=== PATIENT | female | born 1965 | race Caucasian/White ===

== ENCOUNTER 2022-06-04 16:29 | Emergency (ER) | payer MEDICARE, MEDICAID ==
[~2022-06-04] VITALS: Wt 72.6 kg
[2022-06-04 16:40] VITALS: BP 100/75
[2022-06-04 17:33] LABS: BASO # 0.1 10*3/uL (0.0-0.1); BASO % 0.7 % (0.0-1.0); EOS # 0.3 10*3/uL (0.0-0.4); EOS % 2.9 % (1.0-4.0); LYMPH # 3.6 10*3/uL (1.3-4.4); LYMPH % 34.4 % (27.0-41.0); MEAN CELL VOLUME 97.3 fl (81.0-99.0); MEAN CORPUSCULAR HGB 30.1 pg (27.0-31.0); MEAN CORPUSCULAR HGB CONC 30.9 g/dl (33.0-37.0); MEAN PLATELET VOLUME 9.2 fl (9.6-12.3); MONO # 0.7 10*3/uL (0.1-1.0); MONO % 6.6 % (3.0-9.0); NEUT # 5.7 10*3/uL (2.3-7.9); NEUT % 54.5 % (47.0-73.0); PLATELET COUNT AUTOMATED 253 10*3/uL (130-400); RED BLOOD COUNT 3.39 10*6/uL (4.10-5.10); RED CELL DISTRI WIDTH 15.8 % (0-14.5); WHITE BLOOD COUNT 10.5 10*3/uL (4.8-10.8)
[2022-06-04 17:59] LABS: CREATININE 1.19 mg/dL (0.55-1.02)
[2022-06-04] MEDS ORDERED: APAP325 MG PO (22:31)
[2022-06-04] MEDS ORDERED: APAP500 MG PO (22:32)
[2022-06-04] MEDS ORDERED: VENTOLIN 02.5 MG/3 M INH (22:34)
[2022-06-04] MEDS ORDERED: MYLANTA MAXIMU355 M1 PO (22:35)
[2022-06-04] MEDS ORDERED: DULCOLAX10 M1 R (22:36)
[2022-06-04] MEDS ORDERED: MILK OF MA400 MG/51 PO (22:37)
[2022-06-04] MEDS ORDERED: MIRALAX17 GM PO (22:37)
[2022-06-04] MEDS ORDERED: TRAMADOL HCL50 MG PO (22:38)
[2022-06-04] MEDS ORDERED: VISTARIL50 MG PO (22:40)
[2022-06-04] MEDS ORDERED: LEVOTHYROXINE75 MCG PO (22:41)
[2022-06-04] MEDS ORDERED: LIDOCAINE PAIN1 EACH T (22:42)
[2022-06-04] MEDS ORDERED: LOSARTAN POTASS50 M1 PO (22:47)
[2022-06-04] MEDS ORDERED: MIRTAZAPINE15 M2 PO (22:48)
[2022-06-04] MEDS ORDERED: MULTI-VITAMIN1 EACH PO (22:49)
[2022-06-04] MEDS ORDERED: NAMENDA-5 PO (23:09)
[2022-06-04] MEDS ORDERED: NUED1CAP PO (23:10)
[2022-06-04] MEDS ORDERED: NAPROXEN500 MG PO (23:10)
[2022-06-04] MEDS ORDERED: PROTONIX40 MG PO (23:11)
[2022-06-04] MEDS ORDERED: GAVISCON LIQUI355 ML PO (23:13)
[2022-06-04] MEDS ORDERED: DEPAKOTE SPRIN125 MG PO (23:15)
[2022-06-04] MEDS ORDERED: KLONOPIN0.5 MG PO (23:15)
[2022-06-04] MEDS ORDERED: Ondansetron4 MG PO (23:17)
[2022-06-04] MEDS ORDERED: Mysoline50 MG PO (23:17)
[2022-06-04] MEDS ORDERED: EXELON1 EAC1 TD (23:18)
[2022-06-04] MEDS ORDERED: VITAMIN D350 MC2 PO (23:20)
[2022-06-04] MEDS ORDERED: MAGNESIUM400 M1 PO (23:20)
[2022-06-04] MEDS ORDERED: RISPERIDONE0.5 MG PO (23:21)
== END 2022-06-04 21:59 | disposition admitted as inpatient to this hospital (09) ==
LOC: ED → EDBD 17:15 → ED 17:15 → 3N 21:50
PROVIDERS: Internal Medicine
DX: F03.90 Unspecified dementia, unspecified severity, without behavioral disturbance, psychotic disturbance, mood disturbance, and anxiety (principal); Z20.822 Contact with and (suspected) exposure to COVID-19; F39 Unspecified mood [affective] disorder; R45.1 Restlessness and agitation; Z79.899 Other long term (current) drug therapy

== ENCOUNTER 2022-06-04 21:49 | Inpatient (IN) | payer MEDICARE, MEDICAID ==
[~2022-06-04] VITALS: Ht 180.3 cm; Wt 57.2 kg
[2022-06-04 22:01] VITALS: BP 108/67
[2022-06-04] MEDS ORDERED: APAP325 MG PO (22:31)
[2022-06-04] MEDS ORDERED: APAP500 MG PO (22:32)
[2022-06-04] MEDS ORDERED: VENTOLIN 02.5 MG/3 M INH (22:34)
[2022-06-04] MEDS ORDERED: MYLANTA MAXIMU355 M1 PO (22:35)
[2022-06-04] MEDS ORDERED: DULCOLAX10 M1 R (22:36)
[2022-06-04] MEDS ORDERED: MIRALAX17 GM PO (22:37)
[2022-06-04] MEDS ORDERED: MILK OF MA400 MG/51 PO (22:37)
[2022-06-04] MEDS ORDERED: TRAMADOL HCL50 MG PO (22:38)
[2022-06-04] MEDS ORDERED: VISTARIL50 MG PO (22:40)
[2022-06-04] MEDS ORDERED: LEVOTHYROXINE75 MCG PO (22:41)
[2022-06-04] MEDS ORDERED: LIDOCAINE PAIN1 EACH T (22:42)
[2022-06-04] MEDS ORDERED: LOSARTAN POTASS50 M1 PO (22:47)
[2022-06-04] MEDS ORDERED: MIRTAZAPINE15 M2 PO (22:48)
[2022-06-04] MEDS ORDERED: MULTI-VITAMIN1 EACH PO (22:49)
[2022-06-04] MEDS ORDERED: NAMENDA-5 PO (23:09)
[2022-06-04] MEDS ORDERED: NUED1CAP PO (23:10)
[2022-06-04] MEDS ORDERED: NAPROXEN500 MG PO (23:10)
[2022-06-04] MEDS ORDERED: PROTONIX40 MG PO (23:11)
[2022-06-04] MEDS ORDERED: GAVISCON LIQUI355 ML PO (23:13)
[2022-06-04] MEDS ORDERED: KLONOPIN0.5 MG PO (23:15)
[2022-06-04] MEDS ORDERED: DEPAKOTE SPRIN125 MG PO (23:15)
[2022-06-04] MEDS ORDERED: Mysoline50 MG PO (23:17)
[2022-06-04] MEDS ORDERED: Ondansetron4 MG PO (23:17)
[2022-06-04] MEDS ORDERED: EXELON1 EAC1 TD (23:18)
[2022-06-04] MEDS ORDERED: VITAMIN D350 MC2 PO (23:20)
[2022-06-04] MEDS ORDERED: MAGNESIUM400 M1 PO (23:20)
[2022-06-04] MEDS ORDERED: RISPERIDONE0.5 MG PO (23:21)
[2022-06-05 06:39] LABS: CHLORIDE 106 mmol/L (98-107); POTASSIUM 3.8 mmol/L (3.5-5.1); SODIUM 141 mmol/L (136-145)
[2022-06-05 06:53] LABS: ALKALINE PHOSPHATASE 80 U/L (45-117); BUN 18 mg/dl (7-24); CHOLESTEROL 214 mg/dL (<200); CREATININE 0.96 mg/dL (0.55-1.02); LDL CHOLESTEROL 98 mg/dL (9-159); SGOT/AST 20 IU/L (3-35); SGPT/ALT 14 U/L (12-78); THYROID STIM HORMONE (HS) 0.529 uIU/ml (0.358-4.75); TOTAL PROTEIN 7.1 gm/dL (6.4-8.2); TRIGLYCERIDES 374 mg/dl (<150); VALPROIC ACID (DEPAKENE) 31.4 ug/ml (50-100)
[2022-06-05 07:18] LABS: VITAMIN D, 25-HYDROXY 72.7 ng/mL (30-100)
[2022-06-05 08:00] VITALS: BP 104/63
[2022-06-05 20:00] VITALS: BP 102/60
[2022-06-06 07:00] VITALS: BP 106/61
[2022-06-06 20:00] VITALS: BP 130/94
[2022-06-06 21:00] VITALS: BP 138/88
[2022-06-07 07:02] VITALS: BP 116/78
[2022-06-07 18:31] VITALS: BP 104/71
[2022-06-08 07:59] VITALS: BP 114/76
[2022-06-08 20:00] VITALS: BP 104/60
[2022-06-09 06:59] VITALS: BP 102/65
[2022-06-09 20:00] VITALS: BP 92/63
[2022-06-10 12:12] LABS: BILIRUBIN Negative (Negative); BLOOD Trace-Intact (Negative); CLARITY Cloudy (Clear); COLOR Yellow (Yellow); GLUCOSE Negative (Negative); KETONE Trace (Negative); LEUKO ESTERASE 1+ (Negative); NITRITE Negative (Negative); PH 5.5 (4.5-8.0); SPECIFIC GRAVITY >= 1.030 (1.001-1.030)
[2022-06-10 12:35] LABS: BACTERIA 1+; EPITHELIAL CELLS 31-40; MUCOUS 1+
[2022-06-10 15:45] VITALS: BP 114/62
[2022-06-11 07:37] VITALS: BP 105/62
[2022-06-11 20:00] VITALS: BP 139/68
[2022-06-12 07:55] VITALS: BP 106/64
[2022-06-12 19:54] VITALS: BP 122/78
[2022-06-13 06:59] VITALS: BP 102/62
[2022-06-13 12:06] LABS: BASO # 0.1 10*3/uL (0.0-0.1); BASO % 0.8 % (0.0-1.0); EOS # 0.2 10*3/uL (0.0-0.4); EOS % 1.6 % (1.0-4.0); HEMATOCRIT 38.5 % (37.0-47.0); LYMPH # 2.7 10*3/uL (1.3-4.4); LYMPH % 29.6 % (27.0-41.0); MEAN CELL VOLUME 95.8 fl (81.0-99.0); MEAN CORPUSCULAR HGB 29.9 pg (27.0-31.0); MEAN CORPUSCULAR HGB CONC 31.2 g/dl (33.0-37.0); MEAN PLATELET VOLUME 9.9 fl (9.6-12.3); MONO # 0.7 10*3/uL (0.1-1.0); MONO % 7.2 % (3.0-9.0); NEUT # 5.4 10*3/uL (2.3-7.9); NEUT % 59.5 % (47.0-73.0); PLATELET COUNT AUTOMATED 283 10*3/uL (130-400); RED BLOOD COUNT 4.02 10*6/uL (4.10-5.10); RED CELL DISTRI WIDTH 15.5 % (0-14.5); WHITE BLOOD COUNT 9.1 10*3/uL (4.8-10.8)
[2022-06-13 12:30] LABS: CREATININE 1.31 mg/dL (0.55-1.02); POTASSIUM 4.5 mmol/L (3.5-5.1)
[2022-06-13 12:32] LABS: TOTAL PROTEIN 7.9 gm/dL (6.4-8.2)
[2022-06-13 20:00] VITALS: BP 114/74
[2022-06-14 13:59] VITALS: BP 103/64
[2022-06-14 20:32] VITALS: BP 98/55
[2022-06-15 07:10] VITALS: BP 100/57
[2022-06-15 19:54] VITALS: BP 113/57
[2022-06-16 07:49] VITALS: BP 111/66
[2022-06-16 19:06] VITALS: BP 109/71
[2022-06-17 07:19] VITALS: BP 102/69
[2022-06-17 20:00] VITALS: BP 117/65
[2022-06-18 07:26] VITALS: BP 104/68
[2022-06-18 18:36] VITALS: BP 111/68
[2022-06-19 07:23] VITALS: BP 111/57
[2022-06-19 19:55] VITALS: BP 108/69
[2022-06-20 07:09] VITALS: BP 104/56
[2022-06-20] MEDS ORDERED: TRINTELLIX20 MG PO (08:00)
[2022-06-20] MEDS ORDERED: MEMANTINE HCL10 MG PO (08:00)
[2022-06-20] MEDS ORDERED: RIVASTIGMINE1 EAC2 T (08:00)
[2022-06-20] MEDS ORDERED: CLONAZEPAM1 MG PO (08:00)
[2022-06-20] MEDS ORDERED: VITAMIN D350 MC2 PO (08:00)
[2022-06-20] MEDS ORDERED: MELATONIN5 M7 PO (08:00)
[2022-06-20] MEDS ORDERED: QUETIAPINE FUMA50 M1 PO (08:00)
[2022-06-20 08:32] VITALS: BP 128/74
[2022-06-20] MEDS ORDERED: METHYLPHENIDATE10 M3 PO (09:57)
== END 2022-06-20 10:40 | DRG 883 ==
LOC: 3N 21:49
PROVIDERS: Counselor Professional; Registered Nurse; ADMIT Psychiatry & Neurology Psychiatry; ATTEND Psychiatry & Neurology Psychiatry
DX: F63.81 Intermittent explosive disorder (principal); E43 Unspecified severe protein-calorie malnutrition; F10.27 Alcohol dependence with alcohol-induced persisting dementia; Z68.1 Body mass index [BMI] 19.9 or less, adult; K21.9 Gastro-esophageal reflux disease without esophagitis; J44.9 Chronic obstructive pulmonary disease, unspecified; E78.5 Hyperlipidemia, unspecified; G47.33 Obstructive sleep apnea (adult) (pediatric); I10 Essential (primary) hypertension; F39 Unspecified mood [affective] disorder; E78.2 Mixed hyperlipidemia; F32.A Depression, unspecified; G20 Parkinson's disease

== ENCOUNTER 2023-02-20 17:38 | Emergency (ER) | payer OTHER, MEDICAID ==
[~2023-02-20] VITALS: Wt 49.9 kg
[~2023-02-20 17:38] MED LIST: APAP325 MG PO; APAP500 MG PO; CLONAZEPAM1 MG PO; DEPAKOTE SPRIN125 MG PO; DULCOLAX10 M1 R; EXELON1 EAC1 TD; GAVISCON LIQUI355 ML PO; KLONOPIN0.5 MG PO; LEVOTHYROXINE75 MCG PO; LIDOCAINE PAIN1 EACH T; LOSARTAN POTASS50 M1 PO; MAGNESIUM400 M1 PO; MELATONIN5 M7 PO; MEMANTINE HCL10 MG PO; METHYLPHENIDATE10 M3 PO; MILK OF MA400 MG/51 PO; MIRALAX17 GM PO; MIRTAZAPINE15 M2 PO; MULTI-VITAMIN1 EACH PO; MYLANTA MAXIMU355 M1 PO; Mysoline50 MG PO; NAMENDA-5 PO; NAPROXEN500 MG PO; NUED1CAP PO; Ondansetron4 MG PO; PROTONIX40 MG PO; QUETIAPINE FUMA50 M1 PO; RISPERIDONE0.5 MG PO; RIVASTIGMINE1 EAC2 T; TRAMADOL HCL50 MG PO; TRINTELLIX20 MG PO; VENTOLIN 02.5 MG/3 M INH; VISTARIL50 MG PO; VITAMIN D350 MC2 PO
[2023-02-20 18:34] LABS: BASO % 0.4 % (0.0-1.0); EOS # 0.1 10*3/uL (0.0-0.4); EOS % 0.5 % (1.0-4.0); HEMATOCRIT 34.3 % (37.0-47.0); LYMPH # 1.9 10*3/uL (1.3-4.4); LYMPH % 18.8 % (27.0-41.0); MEAN CELL VOLUME 93.5 fl (81.0-99.0); MEAN CORPUSCULAR HGB 28.6 pg (27.0-31.0); MEAN CORPUSCULAR HGB CONC 30.6 g/dl (33.0-37.0); MEAN PLATELET VOLUME 10.2 fl (9.6-12.3); MONO # 0.6 10*3/uL (0.1-1.0); MONO % 6.2 % (3.0-9.0); NEUT # 7.3 10*3/uL (2.3-7.9); NEUT % 73.5 % (47.0-73.0); PLATELET COUNT AUTOMATED 255 10*3/uL (130-400); RED BLOOD COUNT 3.67 10*6/uL (4.10-5.10); RED CELL DISTRI WIDTH 14.9 % (0-14.5)
[2023-02-20 18:45] LABS: ACT PARTIAL THROMBO TIME 23.9 SECONDS (20.0-32.1); INTERNATIONAL NORM RATIO 1.1 (2.0-3.5)
[2023-02-20 18:52] LABS: ALKALINE PHOSPHATASE 75 U/L (46-116); BUN 16 mg/dl (9-23); CHLORIDE 100 mmol/L (98-107); LIPASE 26 U/L (12-53); SGPT/ALT < 7 U/L (10-49); TOTAL PROTEIN 7.7 gm/dL (6.0-8.0)
[2023-02-20 19:27] LABS: BILIRUBIN Negative (Negative); BLOOD Negative (Negative); CLARITY Clear (Clear); COLOR Dark Yellow (Yellow); GLUCOSE Negative (Negative); KETONE 1+ (Negative); LEUKO ESTERASE Trace (Negative); NITRITE Negative (Negative); SPECIFIC GRAVITY >= 1.030 (1.001-1.030)
[2023-02-20 20:20] LABS: BACTERIA 1+; MUCOUS 2+
[2023-02-20] MEDS ORDERED: TRAMADOL HCL50 MG PO (22:38)
[2023-02-20] MEDS ORDERED: CALCIUM500 M1 PO (22:42)
[2023-02-20] MEDS ORDERED: MUCUS RELIEF600 MG PO (22:44)
[2023-02-20] MEDS ORDERED: DEPAKOTE500 M2 PO (22:46)
[2023-02-20] MEDS ORDERED: VISTARIL50 MG PO (22:51)
[2023-02-20] MEDS ORDERED: RIVASTIGMINE TAR6 M1 PO (22:52)
== END 2023-02-20 23:12 | disposition home or self-care (01) ==
LOC: ED 17:38
PROVIDERS: Emergency Medicine
DX: F63.81 Intermittent explosive disorder (principal); R79.82 Elevated C-reactive protein (CRP); F32.A Depression, unspecified; E44.1 Mild protein-calorie malnutrition; Z68.1 Body mass index [BMI] 19.9 or less, adult; D64.9 Anemia, unspecified; N18.32 Chronic kidney disease, stage 3b; F41.9 Anxiety disorder, unspecified; I12.9 Hypertensive chronic kidney disease with stage 1 through stage 4 chronic kidney disease, or unspecified chronic kidney disease; Z88.8 Allergy status to other drugs, medicaments and biological substances; E78.5 Hyperlipidemia, unspecified; Z20.822 Contact with and (suspected) exposure to COVID-19; Z79.899 Other long term (current) drug therapy

== ENCOUNTER 2023-02-20 21:15 | Inpatient (IN) | payer OTHER, MEDICAID ==
[~2023-02-20] VITALS: Wt 45.8 kg
[2023-02-20] MEDS ORDERED: TRAMADOL HCL50 MG PO (22:38)
[2023-02-20] MEDS ORDERED: CALCIUM500 M1 PO (22:42)
[2023-02-20] MEDS ORDERED: MUCUS RELIEF600 MG PO (22:44)
[2023-02-20] MEDS ORDERED: DEPAKOTE500 M2 PO (22:46)
[2023-02-20] MEDS ORDERED: VISTARIL50 MG PO (22:51)
[2023-02-20] MEDS ORDERED: RIVASTIGMINE TAR6 M1 PO (22:52)
[2023-02-20 23:12] VITALS: BP 146/72
[2023-02-21 07:19] LABS: THYROID STIM HORMONE (HS) 0.198 uIU/ml (0.550-4.780)
[2023-02-21 07:23] VITALS: BP 100/52
[2023-02-21 07:48] VITALS: BP 100/52
[2023-02-21 08:15] LABS: VITAMIN D, 25-HYDROXY 69.1 ng/mL (30-100)
[2023-02-21 20:00] VITALS: BP 118/68
[2023-02-22 07:45] VITALS: BP 140/54
[2023-02-22 20:00] VITALS: BP 96/51
[2023-02-23 07:24] VITALS: BP 82/52
[2023-02-24 08:00] VITALS: BP 99/50
[2023-02-24 10:40] LABS: BASO # 0.1 10*3/uL (0.0-0.1); BASO % 0.9 % (0.0-1.0); EOS % 0.4 % (1.0-4.0); HEMATOCRIT 30.5 % (37.0-47.0); LYMPH # 1.4 10*3/uL (1.3-4.4); LYMPH % 20.7 % (27.0-41.0); MEAN CELL VOLUME 90.5 fl (81.0-99.0); MEAN CORPUSCULAR HGB 28.5 pg (27.0-31.0); MEAN CORPUSCULAR HGB CONC 31.5 g/dl (33.0-37.0); MEAN PLATELET VOLUME 10.3 fl (9.6-12.3); MONO # 0.7 10*3/uL (0.1-1.0); MONO % 9.8 % (3.0-9.0); NEUT # 4.5 10*3/uL (2.3-7.9); NEUT % 67.3 % (47.0-73.0); PLATELET COUNT AUTOMATED 222 10*3/uL (130-400); RED BLOOD COUNT 3.37 10*6/uL (4.10-5.10); RED CELL DISTRI WIDTH 14.7 % (0-14.5); WHITE BLOOD COUNT 6.7 10*3/uL (4.8-10.8)
[2023-02-24 10:57] LABS: POTASSIUM 3.1 mmol/L (3.4-5.1)
[2023-02-24 20:00] VITALS: BP 101/88
[2023-02-25 07:06] LABS: POTASSIUM 3.2 mmol/L (3.4-5.1)
[2023-02-25 08:23] VITALS: BP 120/78
[2023-02-25 20:00] VITALS: BP 98/75
[2023-02-26 09:09] VITALS: BP 125/53
[2023-02-26 20:00] VITALS: BP 82/50
[2023-02-27 07:28] VITALS: BP 96/78
[2023-02-27 20:00] VITALS: BP 123/84
[2023-02-28 07:47] VITALS: BP 110/68
[2023-02-28 20:00] VITALS: BP 120/75
[2023-03-01 07:49] VITALS: BP 106/75
[2023-03-02 07:41] VITALS: BP 126/96
[2023-03-02 20:00] VITALS: BP 131/70
[2023-03-03 07:18] VITALS: BP 98/80
[2023-03-03 20:00] VITALS: BP 127/66
[2023-03-04 08:00] VITALS: BP 120/73
[2023-03-04] MEDS ORDERED: LORAZEPAM1 MG PO (10:33)
[2023-03-04] MEDS ORDERED: RISPERIDONE M-0.5 MG OGT (10:33)
[2023-03-04] MEDS ORDERED: MIRTAZAPINE15 M1 PO (10:33)
== END 2023-03-04 11:15 | DRG 883 ==
LOC: 3N 21:15
PROVIDERS: Family Medicine; Student in an Organized Health Care Education/Training Program; ADMIT Psychiatry & Neurology Psychiatry; ATTEND Psychiatry & Neurology Psychiatry
DX: F63.81 Intermittent explosive disorder (principal); N18.32 Chronic kidney disease, stage 3b; N39.0 Urinary tract infection, site not specified; E44.1 Mild protein-calorie malnutrition; F10.97 Alcohol use, unspecified with alcohol-induced persisting dementia; Y90.9 Presence of alcohol in blood, level not specified; D64.9 Anemia, unspecified; F32.9 Major depressive disorder, single episode, unspecified; F02.80 Dementia in other diseases classified elsewhere, unspecified severity, without behavioral disturbance, psychotic disturbance, mood disturbance, and anxiety; K21.9 Gastro-esophageal reflux disease without esophagitis; J44.9 Chronic obstructive pulmonary disease, unspecified; I12.9 Hypertensive chronic kidney disease with stage 1 through stage 4 chronic kidney disease, or unspecified chronic kidney disease; G20 Parkinson's disease; E78.5 Hyperlipidemia, unspecified; R00.0 Tachycardia, unspecified; Z88.0 Allergy status to penicillin; Z79.1 Long term (current) use of non-steroidal anti-inflammatories (NSAID); Z79.51 Long term (current) use of inhaled steroids